=== PATIENT | female | born 1955 | race Caucasian/White ===

== ENCOUNTER 2018-09-14 19:21 | Inpatient (IN) | payer OTHER ==
[2018-09-14] MEDS: ONDANSETRON 4 MG INJ IV (23:10)
[2018-09-14] MEDS: PIPER-TAZO 3.375 GM IV (PMX) 100 ML IVPB (23:10)
[2018-09-14] MEDS: SOD CHLORIDE 0.9% 1,000 ML IV (23:10)
[2018-09-14] MEDS: morphine 4 MG/ML VIAL IV (23:10)
[2018-09-14 23:11] LABS: ADD MAN DIFF? NO
[2018-09-14 23:13] LABS: BASOPHIL # 0.1 10^3/ul (0.0-0.1); BASOPHILS % 0.4 % (0.0-2.0); EOSINOPHILS # 0.3 10^3/ul (0.0-0.5); EOSINOPHILS % 2.2 % (0.0-7.0); HEMATOCRIT 37.9 % (37.0-47.0); HEMOGLOBIN 12.5 g/dl (12.0-16.0); LYMPHOCYTES # 2.8 10^3/ul (0.8-2.9); LYMPHOCYTES % 24.2 % (15.0-51.0); MEAN CORPUSCULAR HEMOGLOBIN 29.9 pg (29.0-33.0); MEAN CORPUSCULAR VOLUME 90.7 fl (82.0-101.0); MEAN PLATELET VOLUME 10.9 fl (7.4-10.4); MONOCYTE # 0.6 10^3/ul (0.3-0.9); MONOCYTES % 5.4 % (0.0-11.0); NEUTROPHIL # 7.8 10^3/ul (1.6-7.5); NEUTROPHILS % 67.4 % (39.0-77.0); PLATELET COUNT 327 10^3/UL (140-415); RED BLOOD COUNT 4.18 10^6/ul (4.20-5.40); RED CELL DISTRIBUTION WIDTH 14.6 % (11.5-14.5)
[2018-09-14 23:13] LABS: WHITE BLOOD COUNT 11.6 10^3/ul (4.8-10.8)
[2018-09-14 23:30] LABS: ALANINE AMINOTRANSFERASE 27 IU/L (13-69); ALBUMIN 4.1 g/dl (3.3-4.9); ALKALINE PHOSPHATASE 132 IU/L (42-121); ANION GAP 9 (5-13); ASPARTATE AMINO TRANSFERASE 17 IU/L (15-46); BILIRUBIN,INDIRECT 0.6 mg/dl (0-1.1); BILIRUBIN,TOTAL 0.6 mg/dl (0.2-1.3); BLOOD UREA NITROGEN 13 mg/dl (7-20); CALCIUM 9.9 mg/dl (8.4-10.2); CARBON DIOXIDE 28 mmol/L (21-31); CHLORIDE 105 mmol/L (97-110); CREATININE 0.61 mg/dl (0.44-1.00); Estimated GFR > 60 mL/min (>60); GLUCOSE 108 mg/dl (70-220); LIPASE 171 U/L (23-300); POTASSIUM 3.2 mmol/L (3.5-5.1); SODIUM 142 mmol/L (135-144); TOTAL PROTEIN 7.5 g/dl (6.1-8.1)
[2018-09-15] MEDS: VANCOMYCIN 1 GM (PMX) 250 ML IVPB (01:45)
[2018-09-15] MEDS ORDERED: DOCUSATE SODIUM 100 MG CAP PO (02:30)
[2018-09-15] MEDS ORDERED: ONDANSETRON 4 MG INJ IV (02:30)
[2018-09-15] MEDS ORDERED: VANCOMYCIN IV PER PHARMACY XX (02:30)
[2018-09-15] MEDS ORDERED: IBUPROFEN 600 MG TAB PO (02:30)
[2018-09-15] MEDS ORDERED: BISACODYL (EC) 5 MG TAB PO (02:30)
[2018-09-15] MEDS ORDERED: NACL 0.9% 3 ML SYG IV (02:30)
[2018-09-15] MEDS: HYDROCODONE/APAP (5/325) TAB PO ×3 (02:57→17:43)
[2018-09-15] MEDS: AMLODIPINE 10 MG TAB PO ×2 (02:57→10:28)
[2018-09-15] MEDS: LISINOPRIL 20 MG TAB PO ×2 (03:39→08:26)
[2018-09-15] MEDS: PIPER-TAZO 3.375 GM IV (PMX) 100 ML IVPB ×4 (05:30→23:31)
[2018-09-15] MEDS: morphine 2 MG INJ IV (06:37)
[2018-09-15] MEDS: VANCOMYCIN 1 GM 250 ML IVPB (14:08)
[2018-09-15] MEDS: ATORVASTATIN 80 MG TAB PO (20:46)
[2018-09-15] MEDS: traZODone 50 MG TAB PO (21:10)
[2018-09-16] MEDS: VANCOMYCIN 1 GM 250 ML IVPB ×2 (01:34→14:10)
[2018-09-16] MEDS: morphine 2 MG INJ IV ×2 (04:03→14:16)
[2018-09-16 05:36] LABS: ADD MAN DIFF? NO
[2018-09-16 05:39] LABS: BASOPHIL # 0.1 10^3/ul (0.0-0.1); BASOPHILS % 0.6 % (0.0-2.0); EOSINOPHILS # 0.4 10^3/ul (0.0-0.5); EOSINOPHILS % 4.2 % (0.0-7.0); HEMATOCRIT 35.3 % (37.0-47.0); HEMOGLOBIN 11.6 g/dl (12.0-16.0); LYMPHOCYTES # 2.3 10^3/ul (0.8-2.9); LYMPHOCYTES % 23.6 % (15.0-51.0); MEAN CORPUSCULAR HEMOGLOBIN 30.1 pg (29.0-33.0); MEAN CORPUSCULAR HGB CONC 32.9 g/dl (32.0-37.0); MEAN CORPUSCULAR VOLUME 91.5 fl (82.0-101.0); MEAN PLATELET VOLUME 11.2 fl (7.4-10.4); MONOCYTE # 0.8 10^3/ul (0.3-0.9); MONOCYTES % 7.8 % (0.0-11.0); NEUTROPHIL # 6.1 10^3/ul (1.6-7.5); NEUTROPHILS % 63.5 % (39.0-77.0); PLATELET COUNT 303 10^3/UL (140-415); RED BLOOD COUNT 3.86 10^6/ul (4.20-5.40); RED CELL DISTRIBUTION WIDTH 14.8 % (11.5-14.5)
[2018-09-16 05:39] LABS: WHITE BLOOD COUNT 9.6 10^3/ul (4.8-10.8)
[2018-09-16] MEDS: PIPER-TAZO 3.375 GM IV (PMX) 100 ML IVPB ×2 (05:49→11:59)
[2018-09-16 05:54] LABS: HEMOGLOBIN A1C 5.5 % (0-5.9)
[2018-09-16 06:24] LABS: ALANINE AMINOTRANSFERASE 33 IU/L (13-69); ALBUMIN 3.4 g/dl (3.3-4.9); ALBUMIN/GLOBULIN RATIO 1.17; ALKALINE PHOSPHATASE 128 IU/L (42-121); ANION GAP 7 (5-13); ASPARTATE AMINO TRANSFERASE 25 IU/L (15-46); BILIRUBIN,INDIRECT 0.3 mg/dl (0-1.1); BILIRUBIN,TOTAL 0.3 mg/dl (0.2-1.3); BLOOD UREA NITROGEN 18 mg/dl (7-20); CALCIUM 9.2 mg/dl (8.4-10.2); CARBON DIOXIDE 30 mmol/L (21-31); CHLORIDE 104 mmol/L (97-110); CREATININE 0.86 mg/dl (0.44-1.00); Estimated GFR > 60 mL/min (>60); GLUCOSE 101 mg/dl (70-220); POTASSIUM 3.7 mmol/L (3.5-5.1); SODIUM 141 mmol/L (135-144); TOTAL PROTEIN 6.3 g/dl (6.1-8.1)
[2018-09-16 06:30] LABS: FREE THYROXINE INDEX (Calc) 2.99 ug/ml (0.65-3.89); T3 UPTAKE 32.2 % (23.5-40.5); T4 (THYROXINE) 9.3 ug/dl (5.5-11.0)
[2018-09-16] MEDS: AMLODIPINE 10 MG TAB PO (08:21)
[2018-09-16] MEDS: LISINOPRIL 20 MG TAB PO ×2 (08:21→08:55)
[2018-09-16] MEDS: HYDROCODONE/APAP (5/325) TAB PO (08:33)
[2018-09-16 13:03] LABS: VANCOMYCIN,TROUGH 11.4 ug/ml (10.0-20.0)
[2018-09-16] MEDS ORDERED: LISINOPRIL 20 MG TAB PO (21:00)
== END 2018-09-16 18:15 | disposition home or self-care (01) | DRG 158 ==
LOC: E/R 19:21 → 2NE 09-15 01:54
DX: K04.7 Periapical abscess without sinus (principal); L03.211 Cellulitis of face; I16.0 Hypertensive urgency; R73.03 Prediabetes; E78.5 Hyperlipidemia, unspecified; E66.9 Obesity, unspecified; Z68.33 Body mass index [BMI] 33.0-33.9, adult; K21.9 Gastro-esophageal reflux disease without esophagitis; J32.9 Chronic sinusitis, unspecified; R51 Headache
CPT/HCPCS: 36415; 70480; 70486; 80053; 80202; 83036; 83690; 83735; 84436; 84443; 84479; 85025; 87040-91; 93005; 96374; 96375; 99285-25